=== PATIENT | female | born 1955 | race Caucasian/White ===

== ENCOUNTER 2019-09-02 12:56 | Emergency (ER) | payer MEDICAID, OTHER ==
[~2019-09-02] VITALS: Ht 149.9 cm; Wt 60.5 kg
[2019-09-02 12:57] VITALS: BP 143/67
--- NOTE | 2019-09-02 13:27 | NUR ---
PT NOTED TO BE SINUS RHYTHM ON MONITOR, DENIES FEELING PALPITATIONS AT THIS TIME
--- NOTE | 2019-09-02 13:37 | NUR ---
Report received assumed patient care.
[2019-09-02 13:40] LABS: BASOPHILS # (AUTO) 0.03 x10^3/uL (0-0.1); BASOPHILS % (AUTO) 1 % (0-1); EOSINOPHILS # (AUTO) 0.08 x10^3/uL (0-0.4); EOSINOPHILS % (AUTO) 2 % (1-7); LYMPHOCYTES # (AUTO) 1.99 x10^3/uL (1-3.4); LYMPHOCYTES % (AUTO) 38 % (22-44); MD NO; MEAN CORPUSCULAR HGB CONC 33.1 g/dL (32.4-35.8); MEAN CORPUSCULAR VOLUME 93.7 fL (80-100); MEAN PLATELET VOLUME 8.4 fL (7.4-10.4); MONOCYTES # (AUTO) 0.43 x10^3/uL (0.2-0.8); MONOCYTES % (AUTO) 8 % (2-9); NEUTROPHILS # (AUTO) 2.65 x10^3/uL (1.8-6.8); NEUTROPHILS % (AUTO) 51 % (42-75); PLATELET COUNT 218 x10^3/uL (130-400); RED CELL DISTRIBUTION WIDTH 13.2 % (9.6-15.2)
[2019-09-02 13:48] LABS: INTERNATIONAL NORMALIZED RATIO 1.04 (0.93-1.1); PROTHROMBIN TIME 10.9 Seconds (9.6-11.5)
[2019-09-02 13:50] LABS: ALBUMIN 4.3 g/dL (3.4-5.0); ANION GAP 5 mmol/L (5-15); CALCIUM 9.8 mg/dL (8.5-10.1); CHLORIDE 108 mmol/L (98-107); CREATININE 0.82 mg/dL (0.55-1.02)
[2019-09-02 13:53] LABS: TROPONIN I < 0.015 ng/mL (0.000-0.045)
--- NOTE | 2019-09-02 14:00 | NUR ---
dr aguilar spoke to dr fontaine
== END 2019-09-02 14:28 | disposition home or self-care (01) ==
LOC: ED 14:00
DX: I48.0 Paroxysmal atrial fibrillation (principal); Z87.891 Personal history of nicotine dependence
CPT/HCPCS: 36415; 80048; 82040; 84443; 84484; 85025; 85610; 85730; 93005; 99284

== ENCOUNTER 2020-01-22 08:34 | Observation (INO) | payer MEDICAID ==
[~2020-01-22] VITALS: Ht 149.9 cm; Wt 59.1 kg
[2020-01-22] MEDS ORDERED: ASPIRIN 325 MG TABLET PO STA (09:06)
[2020-01-22] MEDS ORDERED: DILT120C11 PO (09:11)
[2020-01-22] MEDS ORDERED: ASPIRIN 81 MG TABLET CHEW ONE (09:20)
--- NOTE | 2020-01-22 09:27 | NUR ---
TASK RN: MEDICATION ADMINISTERED PER ORDER. NADN. LAB BEDSIDE. NO OTHER NEEDS REQUESTED AT THIS TIME.
[2020-01-22] MEDS ORDERED: NITROGLYCERIN 0.4 MG BOTTLE (25 TABS) SL PRN (09:30)
[2020-01-22] MEDS ORDERED: ASPIRIN 81 MG TABLET CHEW PO ONE (09:30)
[2020-01-22 09:39] LABS: BASOPHILS # (AUTO) 0.03 x10^3/uL (0-0.1); BASOPHILS % (AUTO) 1 % (0-1); EOSINOPHILS # (AUTO) 0.07 x10^3/uL (0-0.4); EOSINOPHILS % (AUTO) 1 % (1-7); LYMPHOCYTES # (AUTO) 1.76 x10^3/uL (1-3.4); LYMPHOCYTES % (AUTO) 28 % (22-44); MD NO; MEAN CORPUSCULAR HEMOGLOBIN 30.4 pg (27.0-34.8); MEAN CORPUSCULAR HGB CONC 33.3 g/dL (32.4-35.8); MEAN CORPUSCULAR VOLUME 91.3 fL (80-100); MEAN PLATELET VOLUME 8.1 fL (7.4-10.4); MONOCYTES # (AUTO) 0.55 x10^3/uL (0.2-0.8); MONOCYTES % (AUTO) 9 % (2-9); NEUTROPHILS # (AUTO) 3.82 x10^3/uL (1.8-6.8); NEUTROPHILS % (AUTO) 61 % (42-75); PLATELET COUNT 200 x10^3/uL (130-400); RED BLOOD COUNT 4.99 x10^6/uL (3.82-5.3); RED CELL DISTRIBUTION WIDTH 13.1 % (9.6-15.2)
[2020-01-22 09:51] LABS: ALBUMIN 4.1 g/dL (3.4-5.0); ANION GAP 7 mmol/L (5-15); CALCIUM 9.5 mg/dL (8.5-10.1); CHLORIDE 106 mmol/L (98-107)
[2020-01-22 09:54] LABS: ALANINE AMINOTRANSFERASE 35 U/L (12-78); ALKALINE PHOSPHATASE 73 U/L (45-117); BILIRUBIN,TOTAL 0.6 mg/dL (0.2-1.0); CREATININE 1.39 mg/dL (0.55-1.02); TOTAL PROTEIN 7.7 g/dL (6.4-8.2); TROPONIN I < 0.015 ng/mL (0.000-0.045)
--- NOTE | 2020-01-22 10:25 | NUR ---
TASK RN: PT TO IMAGING.
[2020-01-22] MEDS ORDERED: OMNIPAQUE 350 MG/ML, 100ML BOTTLE ONE (10:40)
--- NOTE | 2020-01-22 10:50 | NUR ---
TASK RN: PT SITTING UP ON [employer]. NO ACUTE DISTRESS NOTED. DENIES PALPITATIONS OR INCREASED SOB. PT WITH HR INCREASED TO 120-150 AFIB PER MONITOR. REPEAT EKG COMPLETED.
--- NOTE | 2020-01-22 11:04 | NUR ---
ROBIN MILLER AT BEDSIDE TO DISCUSS POC.
[2020-01-22] MEDS ORDERED: PROPOFOL 10 MG/ML, 20ML ONE (11:10)
--- NOTE | 2020-01-22 11:24 | NUR ---
ROBIN MILLER AT BEDSIDE FOR CARDIOVERSION. MEDICATION ADMINISTERED BY ROBIN MILLER. TOLERATED WELL. SEE PROCEDURE PAPERWORK.
[2020-01-22] MEDS ORDERED: ENOXAPARIN 60 MG/0.6 ML ONE (12:00)
[2020-01-22] MEDS ORDERED: ENOXAPARIN 60 MG/0.6 ML SQ ONE (12:00)
[2020-01-22] MEDS ORDERED: PROPOFOL 10 MG/ML, 20ML IVPush ONE (12:00)
[2020-01-22] MEDS ORDERED: SODIUM CHLORIDE FLUSH 10ML SYR IVF PRN (12:00)
--- NOTE | 2020-01-22 12:12 | NUR ---
PT RESTING IN BED CALL LIGHT IN REACH. NO DISCOMFORT AT THIS TIME.
[2020-01-22] MEDS ORDERED: Enoxaparin 1 mg/kg protocol SQ SCH (12:30)
[2020-01-22] MEDS ORDERED: PHARMACY MAY ADJ FOR RENAL FX MC PRN (12:30)
[2020-01-22] MEDS ORDERED: ACETAMINOPHEN 325 MG TABLET PO PRN (12:30)
[2020-01-22] MEDS ORDERED: SODIUM CHLORIDE 0.9%, 500ML IVBOLUS ONE (12:30)
--- NOTE | 2020-01-22 12:31 | NUR ---
[facility] AT BEDSIDE.
--- NOTE | 2020-01-22 13:23 | NUR ---
PT FOUND TO BE BACK IN AFIB, PT STATES NO DIFCOMFORT AT THIS TIME. POP NOTIFIED.
[2020-01-22] MEDS ORDERED: AMIODARONE 150 MG in DEXTROSE 5% 97 ML IVPB ONE (13:36)
[2020-01-22] MEDS ORDERED: FILTER 0.22 MICRON IV PRN (14:00)
[2020-01-22] MEDS: AMIODARONE 450 MG in DEXTROSE 5% 241 ML IV PRN (14:23)
--- NOTE | 2020-01-22 14:24 | NUR ---
PT BACK IN SINUS
[2020-01-22] MEDS ORDERED: FILTER 0.22 MICRON FOR AMIODARONE IV PRN (14:30)
--- NOTE | 2020-01-22 15:15 | NUR ---
Report called to kristen batista.
[2020-01-22 15:24] LABS: TROPONIN I < 0.015 ng/mL (0.000-0.045)
[2020-01-22 15:39] VITALS: BP 164/91
[2020-01-22] MEDS: ENOXAPARIN 60 MG/0.6 ML SQ SCH (21:02)
[2020-01-22 21:12] VITALS: BP 146/79
[2020-01-22 21:30] LABS: TROPONIN I < 0.015 ng/mL (0.000-0.045)
[2020-01-23] MEDS: AMIODARONE 450 MG in DEXTROSE 5% 241 ML IV PRN (01:12)
[2020-01-23 01:13] VITALS: BP 152/65
[2020-01-23 05:54] LABS: BASOPHILS # (AUTO) 0.03 x10^3/uL (0-0.1); BASOPHILS % (AUTO) 1 % (0-1); EOSINOPHILS # (AUTO) 0.16 x10^3/uL (0-0.4); EOSINOPHILS % (AUTO) 3 % (1-7); LYMPHOCYTES # (AUTO) 2.33 x10^3/uL (1-3.4); LYMPHOCYTES % (AUTO) 41 % (22-44); MD NO; MEAN CORPUSCULAR HEMOGLOBIN 30.5 pg (27.0-34.8); MEAN CORPUSCULAR HGB CONC 32.9 g/dL (32.4-35.8); MEAN CORPUSCULAR VOLUME 92.9 fL (80-100); MEAN PLATELET VOLUME 8.6 fL (7.4-10.4); MONOCYTES # (AUTO) 0.61 x10^3/uL (0.2-0.8); MONOCYTES % (AUTO) 11 % (2-9); NEUTROPHILS # (AUTO) 2.53 x10^3/uL (1.8-6.8); NEUTROPHILS % (AUTO) 45 % (42-75); PLATELET COUNT 162 x10^3/uL (130-400); RED BLOOD COUNT 4.77 x10^6/uL (3.82-5.3); RED CELL DISTRIBUTION WIDTH 13.1 % (9.6-15.2)
[2020-01-23 06:00] LABS: ANION GAP 7 mmol/L (5-15); CALCIUM 9.3 mg/dL (8.5-10.1); CHLORIDE 107 mmol/L (98-107); CREATININE 0.85 mg/dL (0.55-1.02)
[2020-01-23 06:20] LABS: MICROSCOPIC NOT IND
[2020-01-23 08:41] VITALS: BP 153/75
[2020-01-23] MEDS ORDERED: DILTIAZEM 120 MG CAP.ER.24H PO SCH (09:00)
[2020-01-23] MEDS: ENOXAPARIN 60 MG/0.6 ML SQ SCH (09:17)
[2020-01-23] MEDS ORDERED: ENOXAPARIN 40 MG/0.4 ML SQ SCH (09:30)
[2020-01-23] MEDS: AMIODARONE 200 MG TABLET PO SCH ×2 (09:49→21:09)
[2020-01-23] MEDS: ASPIRIN 81 MG TABLET CHEW PO SCH (11:29)
[2020-01-23 12:36] VITALS: BP 157/76
[2020-01-23 21:02] VITALS: BP 166/91
[2020-01-24 05:01] VITALS: BP 145/82
[2020-01-24 07:41] VITALS: BP 151/82
[2020-01-24] MEDS ORDERED: CHLORTHALIDONE 25 MG TABLET PO SCH (09:00)
[2020-01-24] MEDS: ASPIRIN 81 MG TABLET CHEW PO SCH (09:22)
[2020-01-24] MEDS: AMIODARONE 200 MG TABLET PO SCH (09:22)
[2020-01-24] MEDS ORDERED: CHLO25TA PO (10:35)
[2020-01-24] MEDS ORDERED: ASPI-515 PO (10:35)
[2020-01-24] MEDS ORDERED: AMIO200T42 PO ×2 (10:35)
== END 2020-01-24 11:53 | disposition home or self-care (01) ==
LOC: ED 08:53 → INTOOBSV 11:40 → EDIP 11:40 → 5SO 15:28
PROVIDERS: ADMIT Internal Medicine; ATTEND Internal Medicine
DX: I48.0 Paroxysmal atrial fibrillation (principal); R06.02 Shortness of breath; R07.9 Chest pain, unspecified; J44.9 Chronic obstructive pulmonary disease, unspecified; N17.9 Acute kidney failure, unspecified; E87.5 Hyperkalemia; F41.0 Panic disorder [episodic paroxysmal anxiety]; Z87.891 Personal history of nicotine dependence
CPT/HCPCS: 36415; 71045; 71275; 80048; 80053; 81003; 83880; 84443; 84484; 85025; 93005; 93306; 96365; 96366; 96372; 96376; 99285; G0378; J0282; J1650; J2704; J7040; J7060; Q9967